=== PATIENT | female | born 1950 | race Caucasian/White ===

== ENCOUNTER → 2023-09-28 07:44 | Outpatient (REF) | payer MEDICARE, SELFPAY | LOC: HWRAD 07:44 | PROVIDERS: ATTENDING PHYSICIAN Internal Medicine | DX: R20.2 Paresthesia of skin (principal); R26.89 Other abnormalities of gait and mobility; F33.9 Major depressive disorder, recurrent, unspecified; R51.9 Headache, unspecified | CPT/HCPCS: 70450 ==

== ENCOUNTER → 2024-02-10 08:24 | Outpatient (REF) | payer MEDICARE, SELFPAY | LOC: HWRAD 08:24 | PROVIDERS: ATTENDING PHYSICIAN Internal Medicine | DX: R05.3 Chronic cough (principal) | CPT/HCPCS: 71046 ==

== ENCOUNTER 2024-06-20 11:41 | Emergency (ER) | payer MEDICARE, SELFPAY ==
[2024-06-20 11:43] VITALS: BP 143/69
[2024-06-20 12:47] VITALS: BP 131/92; BMI 25.9
--- NOTE | 2024-06-20 12:51 | ED.MUSCINJ ---
HPI-Injury
General
Chief Complaint: Musculo-Skeletal Complaint
Source: patient
Exam Limitations: none
Time Seen by Provider: 06/20/24 12:37
History of Present Illness-Injury
Initial Injury comments:
73-year-old female presents complaining of right rib pain starting 2 days ago. She was reaching for something on her nightstand and she fell off her bed hitting the right ribs on the edge of her bed. She did not hit her head. She has pain with
deep breathing. She denies fever or cough. She is not anticoagulated. She is not insulin-dependent diabetic.
Past History
Past History
ED Past Medical History: Asthma, GERD and NIDDM
ED Past Surgical History:
Social History
Tobacco: Non-smoker
Alcohol: None
Living: with family
Phy Exam
Physical Exam
Physical Exam:
General: Well-appearing female no acute respiratory distress
Musculoskeletal exam: Right lateral chest wall is tender without step-off ecchymosis or deformity
Heart: Regular rate and rhythm
Lungs: Breath sounds heard throughout no wheeze or rales
Extremities: No cyanosis
Injury Course
Orders/Labs/Results
Orders:
Orders
06/20/24 11:42
CR Ribs-right 3 Vw W/pa Chest* Urgent
Comment:
Reason For Exam: fall, pain
MDM/Problems Addressed
Differential Diagnosis Includes:
Right rib pain after a fall. Consider contusion versus strain versus fracture versus pneumothorax
I personally visualized x-rays of the right ribs which are negative for fracture or pneumothorax. Suspect underlying contusion. Recommended anti-inflammatories Lidoderm patches [id number]. Return precautions are given. No indication for
admission
*Critical Care Note
Total Time (30-74mins, 75-104mins- exclusive of procedures): Not Applicable
ED Attending Note
-
Portions of this chart may have been created with voice recognition software.� Occasional wrong word or��sound alike� substitutions may have occurred due to the inherent limitations of voice recognition software.
Discharge Plan
Departure
Patient Disposition: Home (Routine Discharge)
Date of Disposition: 06/20/24
Time of Disposition: 12:54
Patient with high blood pressure during this ER visit?: No
Discharge Problem:
Chest wall contusion
Instructions: Muscle and Bone Pain (DC)
Prescriptions:
No Action
metformin 500 MG tablet
1,000 mg PO BID
glipizide 10 MG tablet
6 mg PO DAILY
ranitidine HCl 75 MG tablet
75 mg PO BID
sertraline 25 MG tablet
25 mg PO DAILY
omeprazole 20 MG capsule,delayed release(DR/EC)
20 mg PO BID
Referrals:
Isak Hansen MD [Family Provider] -
Activity Restrictions/Additional Instructions:
National you may continue with ibuprofen or Tylenol for pain control. You may also apply warm compresses or Lidoderm patches. Avoid heavy lifting or twisting. Return if worse otherwise follow-up with your doctor
Interventions
Interventions:
*Risk Screen - Suicide Last Done: 06/20/24 11:44
*General Assessment Last Done: 06/20/24 11:44
*Neglect/Abuse Screening Last Done: 06/20/24 11:44
*ED- Fall Risk Assessment Last Done: 06/20/24 12:47
*ED COVID-19 Vaccine History Last Done: 06/20/24 11:44
ED-Musculoskeletal Assessment Last Done: 06/20/24 12:47
Discharge Date and Time
Print Language: [place]
== END 2024-06-20 13:07 | disposition home or self-care (01) ==
LOC: EMR 11:41
PROVIDERS: EMERGENCY PHYSICIAN Emergency Medicine; FAMILY PHYSICIAN Internal Medicine
DX: S20.211A Contusion of right front wall of thorax, initial encounter (principal); W06.XXXA Fall from bed, initial encounter; J45.909 Unspecified asthma, uncomplicated; E11.9 Type 2 diabetes mellitus without complications; K21.9 Gastro-esophageal reflux disease without esophagitis
CPT/HCPCS: 99283; 71101

== ENCOUNTER → 2024-07-24 12:52 | Outpatient (REF) | payer MEDICARE, SELFPAY | LOC: HWWDC 12:52 | PROVIDERS: ATTENDING PHYSICIAN Obstetrics & Gynecology Gynecology; FAMILY PHYSICIAN Internal Medicine | DX: Z12.31 Encounter for screening mammogram for malignant neoplasm of breast (principal) | CPT/HCPCS: 77063; 77067 ==

== ENCOUNTER → 2024-08-21 08:49 | Outpatient (REF) | payer MEDICARE, SELFPAY | LOC: HWRAD 08:49 | PROVIDERS: ATTENDING PHYSICIAN Internal Medicine | DX: R29.6 Repeated falls (principal); M54.50 Low back pain, unspecified | CPT/HCPCS: 72110 ==

== ENCOUNTER 2025-01-03 10:25 | Emergency (ER) | payer MEDICARE, SELFPAY ==
[2025-01-03] VITALS (10 sets, daily range): BP systolic 126–165; BP diastolic 53–88; BMI 27.7
--- NOTE | 2025-01-03 10:41 | ED.GENMED ---
History of Present Illness
<Jem Puentes PA-C - Last Filed: 01/03/25 12:52>
General
Chief Complaint: Headache
Time Seen by Provider: 01/03/25 10:35
History of Present Illness
History of Present Illness:
74-year-old female with history of type 2 diabetes and chronic bronchitis presents to the emergency department for evaluation of abnormal speech and confusion. Initial history obtained from the patient is challenging due to clear expressive aphasia
however indicates that she has been confused and displaying unstable walking for the past several weeks. Yesterday she had several falls and after falling developed abnormal speech pattern. Patient's aphasia seems to wax and wane, clearly
expressive and not receptive. She does report headache and vomiting as well
Past History
<Jem Puentes PA-C - Last Filed: 01/03/25 12:52>
Past History
ED Past Medical History: Asthma, GERD and NIDDM
ED Past Surgical History:
Social History
Tobacco: Non-smoker
Alcohol: None
Living: with family
Review of Systems
<Jem Puentes PA-C - Last Filed: 01/03/25 12:52>
Review of Systems
Allergies reviewed?: Yes
All Other Systems: ROS reviewed and negative except as documented in HPI and ROS
Phy Exam
<Jem Puentes PA-C - Last Filed: 01/03/25 12:52>
Physical Exam
Physical Exam:
GEN: Well appearing, NAD, WDWN
HEENT: Oral mucosa moist, no scleral icterus, no nasal congestion
Cardiac: Regular rate
Lung: No respiratory distress, no tachypnea
MSK: No gross deformity or injuries
Skin: Good color, no pallor or jaundice, no rashes
Neuro: AO x3; CN II-XII grossly intact. BUE strength 5/5 in all thomas, sensation intact and symmetric. BLE strength 5/5 in all thomas, sensation intact and symmetric. Significant expressive aphasia, essentially unable to form coherent sentences
however this waxes and wanes and on occasion she can speak clearly. No dysarthria, no receptive aphasia, gait normal
Psych: Calm, cooperative
Course
<Jem Puentes PA-C - Last Filed: 01/03/25 12:52>
Orders/Labs/Results
Orders:
Orders
01/03/25 10:41
CT Head W/o Iv Contrast Urgent
Comment:
Reason For Exam: aphasia
01/03/25 10:56
Complete Blood Count/With Diff Urgent
Comprehensive Metabolic Panel Urgent
01/03/25 11:03
Ondansetron Injectable [Zofran] 4 mg IV NOW STA
01/03/25 11:04
Ondansetron Injectable [Zofran] 4 mg .ROUTE .K-MED ONE
01/03/25 11:30
Labetalol HCl [Trandate] 5 mg IV NOW STA
01/03/25 11:50
CT Cervical Spine W/o Iv Contr Urgent
Comment:
Reason For Exam: head trauma
01/03/25 12:23
Labetalol HCl [Trandate] 10 mg IV NOW STA
Abnormal Lab Results
01/03/25 01/03/25
10:46 10:56
MCH 26.9 L pg
(27.0-31.0)
RDW 15.1 H %
(11.5-14.5)
Abs Immat Gran (auto) 0.1 H 10^3/uL
(0-0.05)
Absolute Neuts (auto) 7.8 H 10^3/uL
(1.4-6.5)
Absolute Monos (auto) 0.7 H 10^3/uL
(0.1-0.6)
Neutrophils % 76.9 H %
(42.2-75.2)
Lymphocytes % 14.5 L %
(20.5-51.1)
Potassium 3.3 L mmol/L
(3.5-5.1)
Creatinine 0.5 L mg/dL
(0.6-1.0)
Glucose 238 H mg/dl
(70-99)
POC Glucose 217 H mg/dl
(70-99)
01/03/25 10:56
01/03/25 10:56
Vital Signs
Initial and Last Documented VS:
Initial Vital Signs
Temp Pulse Resp BP Pulse Ox
99.5 F 90 20 165/81 98
01/03/25 10:27 01/03/25 10:27 01/03/25 10:27 01/03/25 10:27 01/03/25 10:27
Last Documented Vital Signs
Temp Pulse Resp BP Pulse Ox
99.5 F 82 18 147/69 96
01/03/25 10:27 01/03/25 12:10 01/03/25 12:10 01/03/25 12:10 01/03/25 12:10
<Jace Ravi MD - Last Filed: 01/03/25 11:36>
Orders/Labs/Results
Orders:
Orders
01/03/25 10:41
CT Head W/o Iv Contrast Urgent
Comment:
Reason For Exam: aphasia
01/03/25 10:56
Complete Blood Count/With Diff Urgent
Comprehensive Metabolic Panel Urgent
01/03/25 11:03
Ondansetron Injectable [Zofran] 4 mg IV NOW STA
01/03/25 11:04
Ondansetron Injectable [Zofran] 4 mg .ROUTE .STK-MED ONE
01/03/25 11:30
Labetalol HCl [Trandate] 5 mg IV NOW STA
01/03/25 11:50
CT Cervical Spine W/o Iv Contr Urgent
Comment:
Reason For Exam: head trauma
01/03/25 12:23
Labetalol HCl [Trandate] 10 mg IV NOW STA
Abnormal Lab Results
01/03/25 01/03/25
10:46 10:56
MCH 26.9 L pg
(27.0-31.0)
RDW 15.1 H %
(11.5-14.5)
Abs Immat Gran (auto) 0.1 H 10^3/uL
(0-0.05)
Absolute Neuts (auto) 7.8 H 10^3/uL
(1.4-6.5)
Absolute Monos (auto) 0.7 H 10^3/uL
(0.1-0.6)
Neutrophils % 76.9 H %
(42.2-75.2)
Lymphocytes % 14.5 L %
(20.5-51.1)
Potassium 3.3 L mmol/L
(3.5-5.1)
Creatinine 0.5 L mg/dL
(0.6-1.0)
Glucose 238 H mg/dl
(70-99)
POC Glucose 217 H mg/dl
(70-99)
01/03/25 10:56
01/03/25 10:56
Vital Signs
Initial and Last Documented VS:
Initial Vital Signs
Temp Pulse Resp BP Pulse Ox
99.5 F 90 20 165/81 98
01/03/25 10:27 01/03/25 10:27 01/03/25 10:27 01/03/25 10:27 01/03/25 10:27
Last Documented Vital Signs
Temp Pulse Resp BP Pulse Ox
99.5 F 82 18 147/69 96
01/03/25 10:27 01/03/25 12:10 01/03/25 12:10 01/03/25 12:10 01/03/25 12:10
<Jem Puentes PA-C - Last Filed: 01/03/25 12:52>
MDM/Problems Addressed
MDM/Problems Addressed:
74-year-old female presented with acute aphasia and confusion found to have left parietal intraparenchymal hemorrhage. At this time suspicion is for traumatic hemorrhage given the history and lack of obvious mass lesion on scan. No other signs of
external trauma are noted. Case was discussed with trauma attending Dr. Tomas at [facility] and patient will be excepted as a trauma transfer to the ED. Did require IV antihypertensives for strict blood pressure control in the
ED, neurologic exam remained stable without acute change.
<Jem Puentes PA-C - Last Filed: 01/03/25 12:52>
*Pulse Oximetry
SaO2: 98
Oxygen Mode of Delivery: Room air
Patient hypoxic: no
*Critical Care Note
Total Time (30-74mins, 75-104mins- exclusive of procedures): 35 minutes
comment:
Critical care time: 35 minutes
Critical care time was exclusive of: Separately billable procedures, treating other patients, and teaching time
Critical care was necessary to treat or prevent imminent or life-threatening deterioration of the following conditions: Intracranial hemorrhage
Critical care time spent personally by me on the following activities:
[x] Review of old charts
[x] Obtaining history from patient or surrogate
[x] Ordering and review of the laboratory studies
[x] Ordering and review of radiographic studies
[x] Ordering and performing treatments and interventions
[x] Patient patient's response to treatment
[x] Development of treatment plan with patient or surrogate
ED Attending Note
<Jem Puentes PA-C - Last Filed: 01/03/25 12:52>
-
Portions of this chart may have been created with voice recognition software.� Occasional wrong word or��sound alike� substitutions may have occurred due to the inherent limitations of voice recognition software.
<Jace Ravi MD - Last Filed: 01/03/25 11:36>
ED Attending Note
Patient seen and examined by attending physician: Yes
ED Attending Note:
Patient with history of type 2 diabetes, presents to ED accompanied by her , secondary to confusion noted with this morning. However, for the past 1 week, patient has been experiencing intermittent headache along with vomiting, which spouse
was not aware of. Patient states that she has been sick 'for a long period of time'. Denies previous history of similar symptoms. Denies weakness. Denies loss of sensation. Denies chest pain. Denies recent change in diet or medications.
Patient with intermittent incomprehensible speech pattern during initial evaluation.
Physical Exam
General: mild distress, not acutely ill. afebrile
Head: nc/at.
Neck: supple. no meningeal signs.
Heart: s1/s2 regular rate and rhythm
Lungs: no acute respiratory distress. clear bilaterally
Abdomen: normal bowel sounds. not tender.
Neuro: alert and oriented x 3. no focal sensory/motor deficit. incomprehensible speech with expressive/receptive aphasia
Skin: no rash
Psychiatric: well kept. interactive and cooperative
Extremities: no edema. no calf tenderness.
History and exam concerning for potential CVA. Blood work ordered. CT head pending.
CT head report reviewed, consistent with intraparenchymal hemorrhage. Will order labetalol due to hypertension.
Patient will be transferred to trauma center for further evaluation and treatment.
Discharge Plan
Departure
Patient Disposition: Acute Care Hospital
Date of Disposition: 01/03/25
Time of Disposition: 11:41
Discharge Problem:
Intracranial hemorrhage
Prescriptions:
No Action
metformin 500 MG tablet
1,000 mg PO BID
glipizide 10 MG tablet
6 mg PO DAILY
ranitidine HCl 75 MG tablet
75 mg PO BID
sertraline 25 MG tablet
25 mg PO DAILY
omeprazole 20 MG capsule,delayed release(DR/EC)
20 mg PO BID
Referrals:
Edgar Hansen MD [Family Provider, [facility]]
Hospital Transfer
Other hospital: [facility]
I certify that the patient requires transfer: Yes
Discussed case with accepting physician: Thom
Reason for transfer: higher level of care
Interventions
Interventions:
*Risk Screen - Suicide Last Done: 01/03/25 10:27
*General Assessment Last Done: 01/03/25 10:27
*Neglect/Abuse Screening Last Done: 01/03/25 10:27
*ED- Fall Risk Assessment Last Done: 01/03/25 10:59
*ED COVID-19 Vaccine History Last Done: 01/03/25 10:59
*ED Influenza Vaccine History Last Done: 01/03/25 10:59
ED- Neurological Assessment Last Done: 01/03/25 10:50
Discharge Date and Time
Print Language: [id number]
[2025-01-03 10:47] LABS: Glucose - Point of Care 217 mg/dl (70-99)
[2025-01-03] MEDS: ZOFRAN 4 MG IV (11:05)
[2025-01-03 11:11] LABS: Hematocrit 40.8 % (37.0-47.0); Hemoglobin 13.5 g/dL (12.0-16.0); Mean Corp Hgb Conc. 33.1 g/dL (33.0-37.0); Mean Corpuscular Volume 81.4 fL (81.0-99.0); Nucleated Red Blood Cells % 0 %; Platelet Count 280 10^3/uL (130-400); Red Cell Dist. Width 15.1 % (11.5-14.5)
[2025-01-03 11:27] LABS: ALT (SGPT) 18 U/L (0-35); AST (SGOT) 23 U/L (14-36); Albumin 4.7 g/dl (3.5-5.0); Alkaline Phosphatase 111 U/L (38-126); Blood Urea Nitrogen 13 mg/dl (7-17); Calcium 9.9 mg/dl (8.4-10.2); Carbon Dioxide 29 mmol/L (22-30); Chloride 99 mmol/L (98-107); Estimated Creatinine Clearance 77 ml/min; Glucose 238 mg/dl (70-99); Potassium 3.3 mmol/L (3.5-5.1); Sodium 137 mmol/L (135-145); Total Protein 7.9 g/dl (6.3-8.2); eGFR > 60.00
[2025-01-03] MEDS: TRANDATE 5 MG IV (11:36)
[2025-01-03] MEDS: TRANDATE 10 MG IV ×2 (12:26→13:06)
== END 2025-01-03 13:41 | disposition short-term general hospital (02) ==
LOC: EMR 10:25
PROVIDERS: Physician Assistant; EMERGENCY PHYSICIAN Emergency Medicine; FAMILY PHYSICIAN Family Medicine
DX: I62.9 Nontraumatic intracranial hemorrhage, unspecified (principal); R47.01 Aphasia; R29.6 Repeated falls; E11.9 Type 2 diabetes mellitus without complications; J44.89 Other specified chronic obstructive pulmonary disease; K21.9 Gastro-esophageal reflux disease without esophagitis; W19.XXXA Unspecified fall, initial encounter; Z79.84 Long term (current) use of oral hypoglycemic drugs
CPT/HCPCS: 99291; 96374; 96375; 96376 ×2; 70450; 72125; 80053; 82962; 85025

== ENCOUNTER → 2025-03-08 07:16 | Outpatient (REF) | payer MEDICARE, SELFPAY | LOC: RAD 07:16 | PROVIDERS: ATTENDING PHYSICIAN Internal Medicine Critical Care Medicine; FAMILY PHYSICIAN Internal Medicine | DX: R91.1 Solitary pulmonary nodule (principal) | CPT/HCPCS: 71250 ==